=== PATIENT | male | born 1980 | race Caucasian/White ===

== ENCOUNTER 2016-05-12 15:43 | Emergency (ER) | payer OTHER ==
[2016-05-12 15:57] VITALS: BP 115/71; PULSE 100; TEMP 98.2; BMI 21.7
--- NOTE | 2016-05-12 16:18 | PDOC ---
[id number] FALL, RT SIDE ANKLE PAIN Time Seen by Provider: 05/12/16 16:11 History Source: Patient, Parent(s) Exam Limitations: No Limitations - History of Present Illness Initial Comments: 05/12/16 16:15 Patient was walking in the street this morning, tripped in a pothole and had an inversion injury to his right ankle. States has sprained that ankle multiple times in the past and has recurrent pain to the outside aspect. No other injury Occurred: reports: just prior to arrival, this afternoon Severity: reports: mild, moderate Pain Location: reports: lower extremity (right ankle) Method of Injury: Yes: fall Past History - Travel Traveled outside of the country in the last 30 days: No Close contact w/someone who was outside of country & ill: No - Past Medical History Allergies/Adverse Reactions: Allergies Allergy/AdvReac Type Severity Reaction Status Date / Time Penicillins Allergy Mild Hives Verified 05/12/16 15:57 Home Medications: Ambulatory Orders NK [No Known Home Medication] 01/08/15 Other medical history: denies - Immunization History Immunization Up to Date: Yes - Psycho/Social/Smoking Cessation Hx Anxiety: No Suicidal Ideation: No Smoking History: Current every day smoker Have you smoked in the past 12 months: Yes Number of Cigarettes Smoked Daily: 10 Information on smoking cessation initiated: No Hx Alcohol Use: No Drug/Substance Use Hx: No Substance Use Type: Alcohol Trauma Specific PMHX - Complaint Specific PMHX Back Injury: Yes Review of Systems - Review of Systems Able to Perform ROS?: Yes Is the patient limited Nauruan proficient: Yes Constitutional: Yes: Symptoms Reported, See HPI, Malaise HEENTM: Yes: Symptoms Reported, See HPI Musculoskeletal: Yes: Symptoms Reported, See HPI, Joint Pain (right ankle), Joint Swelling, Muscle Pain Integumentary: Yes: Bruising Neurological: Yes: Symptoms reported All Other Systems: Reviewed and Negative *Physical Exam - Vital Signs Last Vital Signs Temp Pulse Resp BP Pulse Ox 98.2 F 100 H 18 115/71 97 05/12/16 15:55 05/12/16 15:55 05/12/16 15:55 05/12/16 15:55 05/12/16 15:55 - Physical Exam General Appearance: Yes: Nourished, Appropriately Dressed, Apparent Distress HEENT: positive: LEE, Normal ENT Inspection, TMs Normal, Pharynx Normal Neck: positive: Supple. negative: Tender, Lymphadenopathy (R), Lymphadenopathy (L) Respiratory/Chest: positive: Lungs Clear Gastrointestinal/Abdominal: positive: Tender, Soft Musculoskeletal: positive: Normal Inspection. negative: Decreased Range of Motion, Muscle Spasm Extremity: positive: Normal Capillary Refill, Normal Inspection, Tender ( tenderness to lateral malleolus, no point tenderness to medial malleolus, fifth metatarsal or navicular bone. Negative squeeze test, and Achilles intact. Neurovascular intact to toes) Integumentary: positive: Normal Color, Pale, Ecchymosis, Bruising Neurologic: positive: medical billing coder II-XII NML intact, Fully Oriented, Alert, Normal Mood/ Affect, Normal Response, Motor Strength 5/5 Procedures - Splinting Splint Location: Right: Ankle Pre-Made Type: aircast Post-Proc Neuro Vasc Exam: normal Progress Note - Progress Note Progress Note: X-ray negative for fractures or dislocation .Right ankle sprain, Ifeanyi air cast and crutches provided. Patient will follow-up with orthopedist *DC/Admit/Observation/Transfer Diagnosis at time of Disposition: Inversion sprain of ankle Qualifiers: Encounter type: initial encounter Laterality: right Qualified Code(s): S93.401A - Sprain of unspecified ligament of right ankle, initial encounter - Discharge Dispostion Disposition: HOME Condition at time of disposition: Stable Admit: No - Referrals Referrals: Reinier Duron MD [Primary Care Provider] - Albin Tello MD [Staff Physician] - - Patient Instructions Printed Discharge Instructions: DI for Ankle Sprain Additional Instructions: Rest, ice to area on and off for 15 minutes 4-6 times a day Avoid heavy lifting or exercise until pain and swelling is resolved or until further directed Keep area highly elevated to reduce swelling Use splints/Ifeanyi wrap as directed Followup with orthopedist in one to 2 days if not improving, if significantly improved may wait one week for followup with orthopedist May use ibuprofen 2-200 mg tablets every 6 hours as needed for pain - Post Discharge Activity Work/School Note: Back to Work
== END 2016-05-12 17:14 | disposition home or self-care (01) ==
LOC: JERFT 15:43
PROC: 2W3LX1Z Immobilization of Right Lower Extremity using Splint (ICD-10-PCS; principal; 2016-05-12)
DX: S93.401A Sprain of unspecified ligament of right ankle, initial encounter (principal); X50.1XXA Overexertion from prolonged static or awkward postures, initial encounter; W17.89XA Other fall from one level to another, initial encounter; Y93.01 Activity, walking, marching and hiking; Y92.414 Local residential or business street as the place of occurrence of the external cause
CPT/HCPCS: 29515; 73610-TC-RT; 73630-TC-RT; 99281-25

== ENCOUNTER 2017-02-04 12:06 | Emergency (ER) | payer OTHER ==
[2017-02-04 12:10] VITALS: BP 121/78; PULSE 100; TEMP 98.5; BMI 21.7
--- NOTE | 2017-02-04 13:24 | PDOC ---
History of Present Illness - General Chief Complaint: Rash Stated Complaint: RASH History Source: Patient Exam Limitations: No Limitations - History of Present Illness Initial Comments: 02/04/17 13:17 This 36-year-old white male presented to the emergency room with complaints of a rash that developed this morning upon awakening. She does not remember if he had been exposed to anything and denies having any ALLERGIES except for penicillin. The patient has not taken anything or experienced any kind of tongue swelling or difficulty in breathing or wheezing. It's more of a generalized body rash that scattered throughout from face down to toes. Mostly on his back and on his chest. He states it's mildly itchy. There is some redness with uticaria 01/26 13:30 Past History - Past Medical History Allergies/Adverse Reactions: Allergies Allergy/AdvReac Type Severity Reaction Status Date / Time Penicillins Allergy Mild Hives Verified 02/04/17 12:10 Home Medications: Ambulatory Orders NK [No Known Home Medication] 01/08/15 Cardiac Disorders: (PERICARDITIS) - Immunization History Immunization Up to Date: Yes - Suicide/Smoking/Psychosocial Hx Smoking History: Current every day smoker Have you smoked in the past 12 months: Yes Number of Cigarettes Smoked Daily: 10 Information on smoking cessation initiated: No Hx Alcohol Use: No Drug/Substance Use Hx: No Substance Use Type: Alcohol Review of Systems - Review of Systems Able to Perform ROS?: Yes Comments:: 02/04/17 13:31 General statement: Hematology: neg history of bleeding/blood thinners Skin: Neg for lesions, bruising. Positive rash HEENT: Neg symptoms Respiratory: Neg SOB or difficulty in breathing Cardiac: Neg chest pain GI: Neg pain, n/v : Neg problems on voiding MS: Neg for joint pain/stiffness, no edema Neuro: Neg for LOC, weakness, Endocrine: Neg for excess thirst/hunger, cold/heat intolerance, excess sweating Allergies: Neg for allergies *Physical Exam - Vital Signs Last Vital Signs Temp Pulse Resp BP Pulse Ox 98.5 F 100 H 18 121/78 100 02/04/17 12:08 02/04/17 12:08 02/04/17 12:08 02/04/17 12:08 02/04/17 12:08 - Physical Exam Comments: 02/04/17 13:32 General Appearance: This well appearing V/S: hemodynamically stable, afebrile Skin: WNL of pt's skin color, no signs of pallor, mottling, cyanosis positive mild rash throughout scattered Head:symmetrical Eyes: EOM's intact, PERRLA Ears: denies pain Nose: patent Throat: lips, teeth, gums, tongue, buccal mucos pink and moist Lungs: Chest symmetry equal. Cap refill <3 seconds. Lung sounds clear Cardiac: PMI at R 4MCL space, pos S1 and S2, regular rate. Abdomen: Soft, round, nontender : Not observed Muscularskeletal: Gait steady, ambulated in to ER, no edema +PMS Neuro: AAOx3, cognitively intact, speech clear and appropriate. Medical Decision Making - Medical Decision Making 02/04/17 13:32 Patient is noted to have an ALLERGIC reaction unknown what type he thinks it may be due to the [place] food he had last night however he is not ALLERGIC to any detergents sheets or whatnot. Patient him is aware that it may become red and maybe become more itchy however he is going to shredder picker some Benadryl upon leaving here. *DC/Admit/Observation/Transfer Diagnosis at time of Disposition: Allergic Qualifiers: Encounter type: initial encounter Qualified Code(s): T78.40XA - Allergy, unspecified, initial encounter; T78.40XA - Allergy, unspecified, initial encounter - Discharge Dispostion Disposition: HOME Condition at time of disposition: Good Admit: No - Referrals Referrals: Reinier Duron MD [Primary Care Provider] - - Patient Instructions Printed Discharge Instructions: Anaphylaxis Additional Instructions: Discharge instructions 1. Please follow up with your primary physician within the next few days and explain that you have been seen here in the Emergency Room. 2. If you experience any worsening of symptoms, please return to the ER 3. Rest, avoid any kind of allergen, avoid any new products, avoid any new foods , take Benadryl as needed for ALLERGIES, when this resolved follow-up with an engine builder for testing. 4. Drink plenty of water
== END 2017-02-04 13:30 | disposition home or self-care (01) ==
LOC: JERFT 12:06
DX: T78.40XA Allergy, unspecified, initial encounter (principal); R21 Rash and other nonspecific skin eruption; X58.XXXA Exposure to other specified factors, initial encounter; Y93.89 Activity, other specified; Y92.013 Bedroom of single-family (private) house as the place of occurrence of the external cause
CPT/HCPCS: 99281-25

== ENCOUNTER 2022-09-24 17:18 | Emergency (ER) | payer OTHER ==
[2022-09-24 17:28] VITALS: BP 99/71; PULSE 97; RESP 18; TEMP 97.8; BMI 22.0
[2022-09-24] MEDS ORDERED: IBUPROFEN 600 MG TABLET (FP) PO ONE ×2 (17:53→18:05)
[2022-09-24] MEDS ORDERED: CYCLOBENZAPRINE HCL 10 MG TABLET (FP) PO ONE (17:53)
[2022-09-24] MEDS ORDERED: ACETAMINOPHEN 500 MG TABLET (FP) PO ONE (17:53)
[2022-09-24] MEDS ORDERED: CYCLOBENZAPRINE HCL 10 MG TABLET (FP) ONE (18:05)
[2022-09-24] MEDS ORDERED: ACETAMINOPHEN 500 MG TABLET (FP) ONE (18:05)
== END 2022-09-24 19:09 | disposition home or self-care (01) ==
LOC: JER 17:18 → JERFT 17:18
DX: M79.645 Pain in left finger(s) (principal); R22.32 Localized swelling, mass and lump, left upper limb; X58.XXXA Exposure to other specified factors, initial encounter
CPT/HCPCS: 73130-TC-LT-FY; 99283-25

== ENCOUNTER 2023-11-03 22:48 | Emergency (ER) | payer OTHER ==
[2023-11-03 23:16] VITALS: BP 120/75; PULSE 98; RESP 18; TEMP 99.3; BMI 22.0
[2023-11-03] MEDS ORDERED: AZITHROMYCIN 500 MG TABLET ONE (23:45)
[2023-11-03] MEDS: AZITHROMYCIN 500 MG TABLET PO ONE (23:47)
== END 2023-11-03 23:48 | disposition home or self-care (01) ==
LOC: JER 22:48
DX: H66.92 Otitis media, unspecified, left ear (principal)
CPT/HCPCS: 99283-25

== ENCOUNTER 2024-09-04 12:13 | Emergency (ER) | payer BC, OTHER ==
[2024-09-04 12:22] VITALS: BP 140/91; PULSE 76; RESP 18; TEMP 97.9; BMI 22.0
[2024-09-04] MEDS ORDERED: KETOROLAC TROMETHAMINE 30 MG/1 ML VIAL ONE (13:37)
[2024-09-04] MEDS: KETOROLAC TROMETHAMINE 30 MG/1 ML VIAL IM ONE (13:44)
== END 2024-09-04 14:23 | disposition home or self-care (01) ==
LOC: JERFT 12:13
PROC: 3E0233Z Introduction of Anti-inflammatory into Muscle, Percutaneous Approach (ICD-10-PCS; principal; 2024-09-04)
DX: R68.84 Jaw pain (principal); K05.6 Periodontal disease, unspecified; K03.81 Cracked tooth; K08.89 Other specified disorders of teeth and supporting structures; K02.9 Dental caries, unspecified
CPT/HCPCS: 99284-25